=== PATIENT | male | born 1985 | race Caucasian/White ===

== ENCOUNTER 2016-08-25 12:22 | Emergency (ER) | payer OTHER ==
[2016-08-25 12:28] VITALS: BP 108/85; PULSE 105; RESP 18; TEMP 98.4; O2SAT 97
--- NOTE | 2016-08-25 13:16 | EDPHY ---
H & P Smoking Status: Never smoked Time Seen by Provider: 08/25/16 12:43 HPI/ROS: CHIEF COMPLAINT: Left lateral ankle pain HISTORY OF PRESENT ILLNESS: 31-year-old male prior history of left ankle injury for which he has never had orthopedic follow-up was dancing earlier today , jumped up and landed and rolled his foot. He is unable to bear full weight secondary to pain. No proximal tibia or fibula pain. NoParesthesia. PHYSICAL EXAM (Prior to examination, patient consented to physical exam, hands were washed and my usual and customary physical exam procedures followed) 1) GENERAL: Well-developed, well-nourished, alert and oriented. Appears to be in no acute distress. 2) HEAD: Normocephalic 3) HEENT: Pupils equal, round, reactive to light bilaterally. 4) LUNGS: Breathing comfortably. 5) MUSCULOSKELETAL: medial and lateral malleolus soft tissue swelling, tenderness to palpation. Intact skin. proximal tibia and fibula nontender . Fibular head nontender..5th MT nontender negative Ortega test, compartments soft 6) SKIN: intact 7) VASCULAR: DP,PT pulses and cap refill present and brisk DIFFERENTIAL DIAGNOSIS: in no particular order including but not limited to fracture, sprain, compartment syndrome Procedure: Crutches indications for crutch use discussed with patient. Patient fitted for crutches by ER staff. Observed ambulating with crutches. I think the patient has the capacity to safely use crutches. Usual and customary crutch walking precautions provided Procedure: Splint A [place] boot splint was applied by ER machine maintenance technician. After application of the splint I returned and re-examined the patient. The splint was adequately immobilizing the joint and distal to the splint the patient's circulation and sensation were intact. Patient shows no signs of compartment syndrome. Was given orthopedic precautions. (Aileen Donahue) Constitutional: Initial Vital Signs Temperature (C) 36.9 C 08/25/16 12:26 Heart Rate 105 H 08/25/16 12:26 Respiratory Rate 18 08/25/16 12:26 Blood Pressure 108/85 H 08/25/16 12:26 O2 Sat (%) 97 07/09/17 12:26 O2 Delivery Mode Room Air Allergies/Adverse Reactions: No Known Allergies Allergy (Unverified 08/25/16 12:25) Home Medications: Medication Instructions Recorded NK [No Known Home Meds] 08/25/16 MDM/Departure - MDM Imaging Results: Imaging Impressions Ankle X-Ray 08/25/16 12:44 Impression: Soft tissue swelling, more predominant at the lateral malleolus and a tibiotalar joint effusion. No evidence for acute fracture. Ossification at the medial malleolus as sequela from old injury. Foot X-Ray 08/25/16 12:55 Impression: Nondisplaced fracture in the distal fifth metatarsal metaphysis. ED Course/Re-evaluation: I did not see this patient while he was in the emergency department. I however his care was discussed with the PA while the patient was in the hospital. I agree with treatment plan and management (Greg Ramirez) - Depart Disposition: Home, Routine, Self-Care Clinical Impression: Moderate left ankle sprain Qualifiers: Encounter type: initial encounter Qualified Code(s): S93.402A - Sprain of unspecified ligament of left ankle, initial encounter Condition: Good Instructions: Ankle Sprain (ED) Additional Instructions: Adult Pain & Fever Control: We recommend Acetaminophen (Tylenol) and Ibuprofen (Motrin,Advil) for pain and fever control. When fever is high or pain severe, both drugs can be used at the same time, but at different intervals. Please note the time differences. Your dose is: Acetaminophen 650mg every 4 to 6 hours Ibuprofen 600mg every 6 hours with food OR Note: do not take Acetaminophen with Hydrocodone (Vicodin, Lortab) or Oycodone (Percocet). These medications also contain Acetaminophen. No more than 3000mg of Acetaminophen should be taken in 24 hours (for an adult). Return to the ER immediately if you experience discoloration, have worsening pain, numbness, tingling, or any other symptoms that concern you. If you received x-rays in the emergency department today, be advised, that ligamentous , tendon, muscular, and other non-bony injury cannot be fully ruled out. Try to keep your affected extremity elevated above the level of your chest, and keep cold packs on the affected area, for the next 48 hours. Referrals: David Sanchez MD [Medical Doctor] - 2-3 days without fail
== END 2016-08-25 13:39 | disposition home or self-care (01) ==
DX: S93.402A Sprain of unspecified ligament of left ankle, initial encounter (principal); X58.XXXA Exposure to other specified factors, initial encounter; Y99.8 Other external cause status; Y93.41 Activity, dancing
CPT/HCPCS: L4386

== ENCOUNTER 2017-04-02 19:01 | Emergency (ER) | payer MEDICAID, OTHER ==
[2017-04-02 19:27] VITALS: BP 132/84; PULSE 71; RESP 20; TEMP 97.5; O2SAT 100
--- NOTE | 2017-04-02 19:48 | EDPHY ---
H & P Time Seen by Provider: 04/02/17 19:37 HPI/ROS: CHIEF COMPLAINT: Tooth/sinus infection, antibiotic reaction HISTORY OF PRESENT ILLNESS: This patient is a healthy 32 y/o male complaining of cold symptoms and possible adverse reaction to amoxicillin. Last , he developed cold symptoms including a mild cough, which persist. Friday, he had intermittent lower tooth and jaw pain. He had an appointment with his dentist Friday and had normal x- rays at that time but was prescribed amoxicillin in case of abscess or sinus infection. Today, he took his first dose of antibiotics at noon with food. He woke around 3pm with a bad headache, nausea, and fatigue. He has not vomited. He has been trying to hydrate with water and Gatorade. Currently, he continues to have some nausea and lightheadedness. He denies fever, abdominal pain, diarrhea, or other associated symptoms. REVIEW OF SYSTEMS: A 10 point review of systems was performed and is negative with the exception of the elements mentioned in the history of present illness. Past Medical/Surgical History: Denies. Social History: Nonsmoker. Lives in [place]. Employed. Smoking Status: Never smoked Physical Exam: General Appearance: Alert, pleasant Eyes: Pupils equal and round, no conjunctival pallor or injection ENT, Mouth: Normal dentition, no dental or gum tenderness or swelling, Mucous membranes moist, no sinus tenderness Neck: Normal inspection, no adenopathy Respiratory: Lungs are clear to auscultation Cardiovascular: Regular rate and rhythm Neurological: A&O, nonfocal exam Skin: Warm and dry, no rash Extremities: Normal inspection Psychiatric: Mood and affect normal Constitutional: Initial Vital Signs Temperature (C) 36.4 C 04/02/17 19:26 Heart Rate 71 04/02/17 19:26 Respiratory Rate 20 04/02/17 19:26 Blood Pressure 132/84 H 04/02/17 19:26 O2 Sat (%) 100 04/02/17 19:26 Allergies/Adverse Reactions: No Known Allergies Allergy (Unverified 04/02/17 19:26) Home Medications: Medication Instructions Recorded NK [No Known Home Meds] 08/25/16 Medical Decision Making ED Course/Re-evaluation: 32 y/o male presents with nausea, lightheadedness, and lower tooth and jaw pain. He is afebrile and non-toxic appearing. No facial swelling or erythema. No tooth or sinus tenderness on exam. Administered 4mg PO Zofran for nausea relief. I advised the patient to d/c amoxicillin at this time. There is no evidence of acute sinusitis or dental abscess, given the normal ENT exam. Plan to discharge home in good condition with Zofran for nausea relief. Follow up and return precautions discussed. He is comfortable with this plan. Differential Diagnosis: Differential diagnosis includes but is not limited to pneumonia, otitis media, peritonsillar abscess, retropharyngeal abscess, meningitis. - Data Points Medications Given: Discontinued Medications Ondansetron HCl (Zofran Odt) 4 mg PO EDNOW ONE Stop: 04/02/17 19:56 Last Admin: 04/02/17 20:11 Dose: 4 mg Ondansetron HCl (Zofran Odt 4 Mg Prepack#2) 1 btl TAKEHOME EDNOW ONE Stop: 04/02/17 19:57 Last Admin: 04/02/17 20:11 Dose: 1 btl Departure - Departure Disposition: Home, Routine, Self-Care Clinical Impression: URI (upper respiratory infection) Qualifiers: URI type: unspecified URI Qualified Code(s): J06.9 - Acute upper respiratory infection, unspecified Condition: Good Instructions: Ondansetron (By mouth), Upper Respiratory Infection (ED) Additional Instructions: 1. Continue saltwater rinses for relief. 2. Discontinue amoxicillin. 3. Take Zofran as prescribed as needed for nausea. Take small sips of water and Gatorade to stay hydrated. 4. Return to the emergency department for high fever, increased pain, or other worsening of condition. 5. Take Tylenol or ibuprofen as directed below as needed for pain or fever. Adult Pain & Fever Control: We recommend Acetaminophen (Tylenol) and Ibuprofen (Motrin,Advil) for pain and fever control. When fever is high or pain severe, both drugs can be used at the same time, but at different intervals. Please note the time differences. Your dose is: Acetaminophen 650mg every 4 to 6 hours Ibuprofen 600mg every 6-8 hours with food Note: do not take Acetaminophen with Hydrocodone (Vicodin, Lortab) or Oxycodone (Percocet). These medications also contain Acetaminophen. No more than 3000mg of Acetaminophen should be taken in 24 hours (for an adult). Referrals: Joselin Byrne MD [[facility] Primary Care Provider] - As per Instructions Report Scribed for: Bella Morales Report Scribed by: Autumn Blakely Date of Report: 04/02/17 Time of Report: 19:48 Physician Review and Approval Statement: 04/02/17 19:48 Portions of this note were transcribed by a manager medical device. I personally performed a history, physical exam, medical decision making, and confirmed accuracy of information the transcribed note.
[2017-04-02] MEDS ORDERED: ONDANSETRON DISINTEGRATING 4 MG TAB PO ONE (19:55)
[2017-04-02] MEDS ORDERED: ONDANSETRON 4MG PREPACK#2 BTL TAKEHOME ONE (19:56)
== END 2017-04-02 20:15 | disposition home or self-care (01) ==
DX: J06.9 Acute upper respiratory infection, unspecified (principal)